=== PATIENT | female | born 1945 | race Caucasian/White ===

== ENCOUNTER 2017-05-21 04:43 | Inpatient (IN) | payer OTHER ==
[~2017-05-21] VITALS: Ht 157.5 cm; Wt 89.4 kg
[2017-05-21 06:01] VITALS: BP 132/55
[2017-05-21] MEDS ORDERED: COREG6.25 MG PO (06:43)
[2017-05-21] MEDS ORDERED: VERAPAMIL E.R240 M1 PO (06:44)
[2017-05-21] MEDS ORDERED: COUMADIN 5 MG TA5 M1 PO (06:44)
[2017-05-21] MEDS ORDERED: IMDUR 60 MG TAB60 M1 PO (06:46)
[2017-05-21] MEDS ORDERED: VITAMIN D1000 UNI1 PO (06:47)
[2017-05-21] MEDS ORDERED: ADVAIR HFA 230M12 GM INH (06:47)
[2017-05-21] MEDS ORDERED: ALBUTEROL2.5 MG/31 (06:48)
[2017-05-21 07:15] VITALS: BP 115/51
[2017-05-21 15:20] LABS: ABSOLUTE BASOPHILS 0.1 thou/uL (0.0-0.2); ABSOLUTE EOSINOPHILS 0.1 thou/uL (0.0-0.7); ABSOLUTE LYMPHOCYTES 1.2 thou/uL (0.8-5.3); ABSOLUTE NEUTROPHILS 5.5 thou/uL (1.6-8.1); BASOPHILS 0.8 %; EOSINOPHILS 1.1 %; HEMATOCRIT 35.4 % (37.0-47.0); HEMOGLOBIN 11.8 gm/dL (12.0-15.0); LYMPHOCYTES 15.7 %; MCH 29.6 pg (26.0-34.0); MCHC 33.4 g/dL (28.0-37.0); MCV 88.7 fL (80.0-100.0); MONOCYTES 12.3 %; MPV 9.1 fl. (7.2-11.1); NUCLEATED RBCS 0 /100WBC; PLATELET COUNT* 315 thou/uL (150-400); POLYS 70.1 %; RBC 3.99 mil/uL (4.20-5.00); RDW-CV 14.9 % (10.5-14.5); WBC 7.9 thou/uL (4.0-11.0)
[2017-05-21 15:32] LABS: APTT 43.9 Seconds (25.0-31.3); INR 2.5; PROTIME 23.7 Seconds (9.20-11.50)
[2017-05-21 15:35] LABS: ALBUMIN 3.1 g/dL (3.4-5.0); CALCIUM 8.6 mg/dL (8.5-10.1); CREATININE 0.7 mg/dL (0.6-1.3); POTASSIUM 4.2 mmol/L (3.5-5.1); TOTAL BILIRUBIN 0.5 mg/dL (<0.1-1.0); TOTAL PROTEIN 6.2 g/dL (6.4-8.2)
[2017-05-21 16:55] VITALS: BP 95/57
== END 2017-05-21 19:55 | disposition short-term general hospital (02) | DRG 560 ==
LOC: M.ORTHSURG 04:43
PROVIDERS: Internal Medicine; ADMIT Internal Medicine
DX: M97.31XA Periprosthetic fracture around internal prosthetic right shoulder joint, initial encounter (principal); E44.1 Mild protein-calorie malnutrition; I48.91 Unspecified atrial fibrillation; J44.9 Chronic obstructive pulmonary disease, unspecified; N80.8 Other endometriosis; W18.39XA Other fall on same level, initial encounter; H40.9 Unspecified glaucoma; Z90.710 Acquired absence of both cervix and uterus; Z87.440 Personal history of urinary (tract) infections; Y93.89 Activity, other specified; Y92.89 Other specified places as the place of occurrence of the external cause; Z90.89 Acquired absence of other organs; Z88.8 Allergy status to other drugs, medicaments and biological substances; Z79.899 Other long term (current) drug therapy; Z79.01 Long term (current) use of anticoagulants; Y99.8 Other external cause status